=== PATIENT | female | born 1990 | race Hispanic/Latino ===

== ENCOUNTER 2017-04-24 08:48 | Emergency (ER) | payer SELFPAY ==
[~2017-04-24 08:48] MED LIST: PREN1TAB89 PO
[2017-04-24] MEDS ORDERED: IBUPROFEN 400 MG TABLET ONE (09:33)
== END 2017-04-24 09:42 | disposition home or self-care (01) ==
LOC: EDH 08:48
DX: J02.9 Acute pharyngitis, unspecified (principal); H92.02 Otalgia, left ear; R09.81 Nasal congestion
CPT/HCPCS: 99282

== ENCOUNTER 2018-03-10 16:36 | Emergency (ER) | payer OTHER | END 2018-03-10 17:54 | disposition home or self-care (01) | LOC: EDH 16:36 | DX: S46.812A Strain of other muscles, fascia and tendons at shoulder and upper arm level, left arm, initial encounter (principal); X58.XXXA Exposure to other specified factors, initial encounter; Y93.89 Activity, other specified; Y92.524 Gas station as the place of occurrence of the external cause; Y99.0 Civilian activity done for income or pay | CPT/HCPCS: 99281 ==

== ENCOUNTER 2018-04-14 17:03 | Emergency (ER) | payer OTHER | END 2018-04-14 18:48 | disposition home or self-care (01) | LOC: EDH 17:03 | DX: K12.0 Recurrent oral aphthae (principal) | CPT/HCPCS: 87880 ==

== ENCOUNTER 2018-04-24 10:28 | Emergency (ER) | payer OTHER ==
[2018-04-24 11:49] LABS: RAPID GROUP A STREP NEGATIVE (NEGATIVE)
== END 2018-04-24 12:21 | disposition home or self-care (01) ==
LOC: EDH 10:28
DX: J10.1 Influenza due to other identified influenza virus with other respiratory manifestations (principal)
CPT/HCPCS: 81025; 87804; 87880

== ENCOUNTER 2019-08-16 17:19 | Emergency (ER) | payer SELFPAY ==
[2019-08-16 18:24] LABS: BASOPHILS % (AUTO) 0.4 % (0.0-5.0); EOSINOPHILS % (AUTO) 1.5 % (0.0-8.0); HEMATOCRIT 37.8 % (36-48); LYMPHOCYTES % (AUTO) 18.1 % (21.0-51.0); MEAN CORPUSCULAR HEMOGLOBIN 28.5 pg (27.0-33.0); MEAN CORPUSCULAR HGB CONC 33.1 g/dL (32.0-36.0); MEAN CORPUSCULAR VOLUME 86.1 fL (79-99); MONOCYTES % (AUTO) 5.1 % (3.0-13.0); NEUTROPHILS % (AUTO) 74.5 % (40.0-77.0); PLATELET COUNT (AUTO) 315 K/uL (130-400); RED BLOOD CELL COUNT(AUTO) 4.39 MIL/uL (4.00-5.50); RED CELL DISTRIBUTION WIDTH 12.9 % (11.0-15.5); WHITE BLOOD COUNT (AUTO) 12.6 K/uL (4.8-10.8)
[2019-08-16 18:25] LABS: APPEARANCE,URINE SL CLOUDY (CLEAR); BILIRUBIN,URINE SMALL (NEGATIVE); COLOR,URINE RED (YELLOW); GLUCOSE, URINE (UA) NEGATIVE (NEGATIVE); KETONES,URINE NEGATIVE (NEGATIVE); LEUKOCYTE ESTERASE ,URINE LARGE (NEGATIVE); NITRATE,URINE POSITIVE (NEGATIVE); OCCULT BLOOD,URINE LARGE (NEGATIVE); PH,URINE 7.5 (5.0-8.0); PROTEIN,URINE 100 mg/dL (NEGATIVE)
[2019-08-16 18:42] LABS: CREATININE 0.7 mg/dL (0.5-1.5); POTASSIUM 3.7 mmol/L (3.5-5.1)
[2019-08-16 18:56] LABS: BACTERIA,URINE Few /HPF (None Seen); MUCUS,URINE Few LPF (None Seen); SQUAMOUS EPITHELIAL CELL,UR Few /HPF (0-2)
[2019-08-16 18:57] LABS: ALBUMIN 3.8 g/dL (3.5-5.0); BILIRUBIN,TOTAL 0.3 mg/dL (0.2-1.0); TOTAL PROTEIN, SERUM 7.6 g/dL (6.0-8.3)
[2019-08-16] MEDS ORDERED: CEFTRIAXONE SODIUM 1 GM ONE ×2 (20:34→20:41)
[2019-08-16] MEDS ORDERED: ONDANSETRON ODT 4 MG TAB ONE (20:35)
[2019-08-16] MEDS ORDERED: AZITHROMYCIN 250 MG TABLET PO ONE (20:35)
[2019-08-16] MEDS ORDERED: LIDOCAINE HCL-MPF 1% 2ML VIAL ONE (20:41)
== END 2019-08-16 20:49 | disposition home or self-care (01) ==
LOC: EDH 17:19
DX: O23.41 Unspecified infection of urinary tract in pregnancy, first trimester (principal); O26.891 Other specified pregnancy related conditions, first trimester; N93.8 Other specified abnormal uterine and vaginal bleeding; Z3A.08 8 weeks gestation of pregnancy; Z20.2 Contact with and (suspected) exposure to infections with a predominantly sexual mode of transmission
CPT/HCPCS: 36415; 80053; 81001; 81025; 84702; 85025; 86900; 86901; 87088; 87486; 87797; 99284; J0696 ×2; J3490

== ENCOUNTER 2021-10-01 09:47 | Emergency (ER) | payer OTHER ==
[~2021-10-01] VITALS: Ht 162.6 cm; Wt 58.5 kg
[2021-10-01 10:24] LABS: APPEARANCE,URINE CLOUDY (CLEAR); BILIRUBIN,URINE NEGATIVE (NEGATIVE); COLOR,URINE YELLOW (YELLOW); GLUCOSE, URINE (UA) NEGATIVE (NEGATIVE); KETONES,URINE NEGATIVE (NEGATIVE); LEUKOCYTE ESTERASE ,URINE MODERATE (NEGATIVE); NITRATE,URINE NEGATIVE (NEGATIVE); OCCULT BLOOD,URINE TRACE-INTACT (NEGATIVE); PROTEIN,URINE NEGATIVE (NEGATIVE); UROBILINOGEN,URINE 0.2 mg/dL (0.2-1.0)
[2021-10-01 10:27] VITALS: BP 129/71
[2021-10-01 10:44] LABS: RBC,URINE 0-1 /HPF (0-1)
[2021-10-01 10:45] LABS: BACTERIA,URINE Few /HPF (None Seen); MUCUS,URINE Few LPF (None Seen)
[2021-10-01 10:52] LABS: BASOPHILS % (AUTO) 0.5 % (0.0-5.0); EOSINOPHILS % (AUTO) 1.2 % (0.0-8.0); HEMATOCRIT 37.1 % (36-48); MEAN CORPUSCULAR HEMOGLOBIN 28.6 pg (27.0-33.0); MEAN CORPUSCULAR HGB CONC 33.4 g/dL (32.0-36.0); MEAN CORPUSCULAR VOLUME 85.5 fL (79-99); MONOCYTES % (AUTO) 5.8 % (3.0-13.0); PLATELET COUNT (AUTO) 276 K/uL (130-400); RED BLOOD CELL COUNT(AUTO) 4.34 MIL/uL (4.00-5.50); RED CELL DISTRIBUTION WIDTH 13.1 % (11.0-15.5); WHITE BLOOD COUNT (AUTO) 7.6 K/uL (4.8-10.8)
[2021-10-01 11:01] LABS: CARBON DIOXIDE 27 mmol/L (21-32); CHLORIDE 107 mmol/L (101-111); CREATININE 0.6 mg/dL (0.5-1.5); GLOMERULAR FILTR. RATE CALC 126 mL/min (>60); GLUCOSE,RANDOM 104 mg/dL (70-105); POTASSIUM 4.1 mmol/L (3.5-5.1); SODIUM SERUM 141 mmol/L (136-145); UREA NITROGEN, BLOOD 11 mg/dL (7-18)
[2021-10-01 11:05] LABS: ALANINE AMINOTRANSFERASE 153 U/L (12-78); ALBUMIN 3.7 g/dL (3.5-5.0); ASPARTATE AMINOTRANSFERASE 103 U/L (10-37); CREATINE KINASE, TOTAL 56 U/L (21-232); CRP QUANTITATIVE < 2.00 mg/L (0.00-9.0); TOTAL PROTEIN, SERUM 7.4 g/dL (6.0-8.3)
[2021-10-01] MEDS ORDERED: IBUP-2070 PO (12:37)
== END 2021-10-01 12:52 | disposition home or self-care (01) ==
LOC: EDH 09:47
DX: M79.671 Pain in right foot (principal); M79.672 Pain in left foot; M79.641 Pain in right hand; M79.642 Pain in left hand; Z79.1 Long term (current) use of non-steroidal anti-inflammatories (NSAID)
CPT/HCPCS: 36415; 80053; 81001; 81025; 82550; 82948; 85025; 86140; 87088